=== PATIENT | female | born 1995 | race Caucasian/White ===

== ENCOUNTER 2017-05-27 15:23 | Emergency (ER) | payer BC ==
[2017-05-27 15:31] VITALS: BP 134/89
--- NOTE | 2017-05-27 15:41 | UC ---
Dental HPI - HPI Summary HPI Summary: 3rd molar upper right pain ful has had problems on/off for year but usually goes away quickly this time pain continues has a dental appointment for Monday - History of Current Complaint Chief Complaint: UCDentalProblem Stated Complaint: TOOTH PAIN Time Seen by Provider: 05/27/17 15:33 Hx Obtained From: Patient Hx Last Menstrual Period: 05/10/17 ?: No Onset/Duration: Gradual Onset, Worse Since - past 2 days Severity: Moderate Pain Intensity: 7 Pain Scale Used: 0-10 Numeric Aggravating: Heat, Cold, Chewing Alleviating: Nothing Related History: Previous Dental Care on Same Tooth - Allergies/Home Medications Allergies/Adverse Reactions: Allergies Allergy/AdvReac Type Severity Reaction Status Date / Time Azithromycin [From Zithromax] Allergy Hives Verified 05/27/17 15:27 Penicillins Allergy Hives/Diff. Verified 05/27/17 15:27 Breathing/I tching Home Medications: Home Medications Acetaminophen [Tylenol] 325 mg PO Q6HR PRN 05/27/17 [History Confirmed 05/27/17] PMH/Surg Hx/FS Hx/Imm Hx Previously Healthy: Yes - Surgical History Surgical History: Yes Surgery Procedure, Year, and Place: toncilectomy, [place] hx of - Family History Known Family History: Positive: None - Social History Occupation: Employed Full-time Lives: With Family Alcohol Use: Occasionally Substance Use Type: None Smoking Status (MU): Never Smoked Tobacco Review of Systems Constitutional: Negative Skin: Negative Eyes: Negative ENT: Dental Pain Respiratory: Negative Cardiovascular: Negative Gastrointestinal: Negative Genitourinary: Negative Motor: Negative Neurovascular: Negative Musculoskeletal: Negative Neurological: Negative Psychological: Negative All Other Systems Reviewed And Are Negative: Yes Physical Exam Triage Information Reviewed: Yes Appearance: Well-Appearing, Well-Nourished, Pain Distress - mild Vital Signs: Initial Vital Signs Temp 99.3 F 05/27/17 15:28 Pulse 79 05/27/17 15:28 Resp 14 05/27/17 15:28 BP 134/89 05/27/17 15:28 Pulse Ox 100 05/27/17 15:28 Vital Signs Reviewed: Yes Eye Exam: Normal Eyes: Positive: Conjunctiva Clear ENT Exam: Normal ENT: Positive: Normal ENT inspection, Hearing grossly normal, Pharynx normal. Negative: Nasal congestion, Nasal drainage, Trismus, Muffled/hoarse voice Dental Exam: Normal Dental: Positive: Percussion Tenderness @ - 3rd upper molar on right, Gross Decay/Caries @ Neck exam: Normal Neck: Positive: Supple, Nontender, No Lymphadenopathy Respiratory Exam: Normal Respiratory: Positive: Chest non-tender, No respiratory distress, No accessory muscle use Cardiovascular Exam: Normal Cardiovascular: Positive: RRR, Pulses Normal, Brisk Capillary Refill Musculoskeletal Exam: Normal Musculoskeletal: Positive: Strength Intact, ROM Intact, No Edema Neurological Exam: Normal Neurological: Positive: Alert, Muscle Tone Normal Psychological Exam: Normal Skin Exam: Normal Dental Complaint Course/Dx - Course Course Of Treatment: clinda, ibuprofen hydrocodone, follow with dentist on Monday asplanned - Differential Dx/Diagnosis Differential Diagnosis/Dx: Dental Abscess, Dental Caries, Odontogenic Pain Provider Diagnoses: Dental caries with abscess right upper 3rd molar Discharge - Discharge Plan Condition: Stable Disposition: HOME Prescriptions: Clindamycin Cap(NF) [Cleocin 300 mg Cap(NF)] 300 mg PO Q6H #40 cap HYDROcodone/ACETAMIN 5-325 MG* [Froid 5-325 TAB*] 1 tab PO Q6H PRN #20 tab MDD 4 PRN Reason: Pain HYDROcodone/ACETAMIN 5-325 MG* [Froid 5-325 TAB*] 1 tab PO Q6H PRN #20 tab MDD 4 PRN Reason: pain Ibuprofen TAB* [Motrin TAB* 600 MG] 600 mg PO Q6H PRN #40 tab PRN Reason: pain Patient Education Materials: Dental Abscess (ED), Toothache (ED) Forms: *Work Release Referrals: No Primary Care Phys,NOPCP [Primary Care Provider] - Additional Instructions: Follow with dentist on Monday as planned
== END 2017-05-27 15:51 | disposition home or self-care (01) ==
LOC: UCEAST 15:23
DX: K02.9 Dental caries, unspecified (principal); K04.7 Periapical abscess without sinus
CPT/HCPCS: 99202; G0463

== ENCOUNTER 2017-06-17 12:01 | Emergency (ER) | payer BC ==
--- NOTE | 2017-06-17 12:18 | UC ---
General HPI - HPI Summary HPI Summary: Patient presents with complaints of sore tongue following treatment of clindymycin for dental extractions. She states that the extractions are healing well, denies any fever, chills, bleeding or discharge from the sites. She offers no other concners or complaints at this visit. - History of Current Complaint Chief Complaint: UCGeneralIllness Stated Complaint: SORE MOUTH Time Seen by Provider: 06/17/17 12:12 Hx Obtained From: Patient Hx Last Menstrual Period: 06/02/17 Onset/Duration: Gradual Onset, Lasting Days Timing: Constant Onset Severity: Moderate Associated Signs & Symptoms: Positive: Other - white spots on tongue,coating of tongue. - Allergy/Home Medications Allergies/Adverse Reactions: Allergies Allergy/AdvReac Type Severity Reaction Status Date / Time Azithromycin [From Zithromax] Allergy Hives Verified 05/27/17 15:27 Penicillins Allergy Hives/Diff. Verified 05/27/17 15:27 Breathing/I tching PMH/Surg Hx/FS Hx/Imm Hx Previously Healthy: Yes Respiratory History: Other - dental abscess,caries. - Surgical History Surgical History: Yes Surgery Procedure, Year, and Place: toncilectomy, [place] hx of - Family History Known Family History: Positive: None - Social History Occupation: Employed Part-time Lives: With Family Alcohol Use: Occasionally Substance Use Type: None Smoking Status (MU): Never Smoked Tobacco Review of Systems ENT: Other - white spots and plaque on tongue All Other Systems Reviewed And Are Negative: Yes Physical Exam Triage Information Reviewed: Yes Appearance: Well-Appearing Vital Signs: Initial Vital Signs Temp 97.4 F 06/17/17 12:06 Pulse 78 06/17/17 12:06 Resp 16 06/17/17 12:06 Pulse Ox 100 06/17/17 12:06 Vital Signs Reviewed: Yes Eye Exam: Normal ENT Exam: Normal ENT: Positive: Other: - tingue beefy red, with surrounding white plague and papules. Neck exam: Normal Respiratory Exam: Normal Cardiovascular Exam: Normal Course/Dx - Course Course Of Treatment: Patient presents following full course of clindymycin for dental extractions and abscesses. She has since developed a sensative tongue, and white paplues consisent with thrush. Rx Nystatin. Follow up if symtpoms persist, or worsen. Stable VS at discharge. - Differential Dx - Multi-Symptom Differential Diagnoses: Other - Thrush Provider Diagnoses: Thrush. Oral candidiasis Discharge - Discharge Plan Condition: Stable Disposition: HOME
== END 2017-06-17 12:40 | disposition home or self-care (01) ==
LOC: UCEAST 12:01
DX: B37.0 Candidal stomatitis (principal); Z88.3 Allergy status to other anti-infective agents; Z88.0 Allergy status to penicillin
CPT/HCPCS: 99212; G0463

== ENCOUNTER 2017-08-31 16:56 | Emergency (ER) | payer BC ==
[2017-08-31 17:13] VITALS: BP 131/70
--- NOTE | 2017-08-31 21:22 | UC ---
Melvina Pollard Alfonso, scribed for Danna Lee DO on 08/31/17 at 1840 . Back Pain HPI - HPI Summary HPI Summary: This patient is a 22 year old F presenting to [facility] with a chief complaint of right sided back pain since this morning. The back pain radiates to her groin. She was diagnosed with a UTI two days ago. The patient rates the cramping pain 7 /10 in severity. This morning they were a 9/10. Symptoms aggravated by movement and palpation. Symptoms alleviated by nothing. Patient reports headache , pain with bumps in the roaddysuria, urinary frequency, and foul urinary odor. Patient denies fever, chills, N/V, rashes, sore throat, and SOB. Medications reviewed this visit. - History of Current Complaint Chief Complaint: UCGeneralIllness Stated Complaint: UTI Time Seen by Provider: 08/31/17 18:19 Hx Obtained From: Patient Hx Last Menstrual Period: 08/17/17 Onset/Duration: Sudden Onset, Lasting Hours, Still Present Timing: Constant Severity Currently: Moderate Pain Intensity: 5 Pain Scale Used: 0-10 Numeric Aggravating Factor(s): Movement, Other - palpation Alleviating Factor(s): Nothing Associated Signs And Symptoms: Positive: Other - headache, dysuria, urinary frequency, and foul urinary odor. Patient denies fever, chills, N/V, rashes, sore throat, and SOB. - Allergies/Home Medications Allergies/Adverse Reactions: Allergies Allergy/AdvReac Type Severity Reaction Status Date / Time Azithromycin [From Zithromax] Allergy Hives Verified 08/31/17 19:44 Penicillins Allergy Hives/Diff. Verified 08/31/17 19:44 Breathing/I tching Home Medications: Home Medications Bupropion HCl [Bupropion HCl ER] 100 mg PO BID 08/31/17 [History Confirmed 08/31] PMH/Surg Hx/FS Hx/Imm Hx Previously Healthy: No Respiratory History: Asthma Psychological History: Depression - Surgical History Surgical History: Yes Surgery Procedure, Year, and Place: toncilectomy, [place] hx of - Family History Known Family History: Positive: Cardiac Disease, Diabetes - Social History Alcohol Use: None Substance Use Type: None Smoking Status (MU): Never Smoked Tobacco - Immunization History Most Recent Influenza Vaccination: none Review of Systems Genitourinary: Dysuria, Frequency, Other - foul urinary odor Musculoskeletal: Other: - right sided back pain Neurological: Headache All Other Systems Reviewed And Are Negative: Yes Physical Exam Triage Information Reviewed: Yes Appearance: Well-Appearing, No Pain Distress, Obese Vital Signs: Initial Vital Signs Temp 98.4 F 08/31/17 17:07 Pulse 84 08/31/17 17:07 Resp 18 08/31/17 17:07 BP 131/70 08/31/17 17:07 Pulse Ox 100 08/31/17 17:07 Vital Signs Reviewed: Yes Eyes: Positive: Conjunctiva Clear. Negative: Discharge ENT: Positive: Hearing grossly normal, Pharynx normal. Negative: Tonsillar swelling, Tonsillar exudate, Trismus, Muffled/hoarse voice Neck: Positive: Supple, Nontender Respiratory: Positive: Chest non-tender, Lungs clear, Normal breath sounds, No respiratory distress Cardiovascular: Positive: RRR, No Murmur Abdomen Description: Positive: Soft, Guarding, McBurney's Point Tenderness, Other: - Positive bilateral CVA tenderness worse on the right. RLQ tenderness.. Negative: Distended Bowel Sounds: Positive: Present Musculoskeletal Exam: Normal Neurological Exam: Normal Neurological: Positive: Alert, Muscle Tone Normal Psychological Exam: Normal Psychological: Positive: Age Appropriate Behavior Skin Exam: Normal Skin: Positive: Other - Warm, Dry, Normal color Back Pain Course/Dx - Course Course Of Treatment: This patient is a 22 year old F presenting to [facility] with a chief complaint of right sided back pain since this morning. The back pain radiates to her groin. She was diagnosed with a UTI two days ago. The patient rates the cramping pain 5/10 in severity. Symptoms aggravated by movement and palpation. Symptoms alleviated by nothing. Patient reports headache, dysuria, urinary frequency, and foul urinary odor. Patient denies fever, chills, N/V, rashes, sore throat, and SOB. Medications reviewed this visit. Patient will go immediately to the ED by private car. The patient is agreeable with this plan. - Differential Dx/Diagnosis Differential Diagnosis/HQI/PQRI: Renal Colic, Other - appy, infected kidney stone Provider Diagnoses: rlq pain Discharge - Discharge Plan Condition: Stable Disposition: HOME Patient Education Materials: Abdominal Pain (ED) Forms: *Work Release Referrals: [facility] [place] PH[facility]IAN REFERRAL [Outside] Additional Instructions: YOUR BLOOD PRESSURE WAS ELEVATED AT THIS VISIT. FOLLOW UP WITH YOUR PRIMARY CARE PROVIDER WITHIN ONE WEEK FOR THIS. YOUR HISTORY AND PHYSICAL EXAM MAKES US SUSPICIOUS OF THE POSSIBILITY OF AN INFECTED KIDNEY STONE. WE COULD NOT COMPLETE THAT EVALUATION HERE BECAUSE THE SEVERE RLQ ABDOMINAL PAIN YOUR ARE HAVING RAISES CONCERN FOR APPENDICITIS. WE CANNOT EVALUATE YOU HERE FOR THAT. YOU SHOULD GO TO THE EMERGENCY DEPARTMENT IMMEDIATELY FOR FURTHER EVALUATION AND TREATMENT. THIS RISKS ASSOCIATED WITH AN INFECT KIDNEY STONE ARE WORSENING PAIN, WORSENING INFECTION, SEPSIS, KIDNEY DAMAGE, AND . THE RISK ASSOCIATED WITH APPENDICITIS ARE WORSENING PAIN, RUPTURE, WORSENING INFECTION, AND . DO NOT EAT ANYTHING UNTIL EVALUATED AND MEDICALLY CLEARED. The documentation as recorded by the Melvina hansen Alfonso accurately reflects the service I personally performed and the decisions made by , Danna Lee DO.
== END 2017-08-31 19:10 | disposition home or self-care (01) ==
LOC: UCEAST 16:56
DX: R10.31 Right lower quadrant pain (principal); Z88.3 Allergy status to other anti-infective agents; Z88.0 Allergy status to penicillin; J45.909 Unspecified asthma, uncomplicated; F32.9 Major depressive disorder, single episode, unspecified; E66.9 Obesity, unspecified; Z32.02 Encounter for pregnancy test, result negative
CPT/HCPCS: 81003; 84702; 87086; 99212; G0463

== ENCOUNTER 2017-08-31 19:36 | Emergency (ER) | payer BC ==
[2017-08-31 21:37] LABS: Hematocrit 42 % (35-47); Hemoglobin 14.3 g/dl (12.0-16.0); Mean Corpuscular HGB Conc 34 g/dl (31-36); Mean Corpuscular Hemoglobin 29 pg (27-31); Mean Corpuscular Volume 86 fL (80-97); Mean Platelet Volume 9 um3 (7.4-10.4); Red Blood Count 4.89 10^6/ul (4.0-5.4); Red Cell Distribution Width 13 % (10.5-15); White Blood Count 7.7 10^3/ul (3.5-10.8)
[2017-08-31 21:54] LABS: ALT 16 U/L (7-52); AST 16 U/L (13-39); Albumin 4.4 g/dL (3.2-5.2); Alkaline Phosphatase 112 U/L (34-104); Anion Gap 6 mmol/L (2-11); BUN/Creatinine Ratio 14.1 (8-20); Blood Urea Nitrogen 11 mg/dL (6-24); C Reactive Protein 5.14 mg/L (< 5.00); CO2 Carbon Dioxide 25 mmol/L (22-32); Calcium 9.4 mg/dL (8.6-10.3); Chloride 106 mmol/L (101-111); EGFR African American 121.1 (>60); EGFR Non-African American 94.2 (>60); Globulin 2.6 g/dL (2-4); Glucose 79 mg/dL (70-100); Lipase 22 U/L (11.0-82.0); Potassium 3.9 mmol/L (3.5-5.0); Sodium 137 mmol/L (133-145)
[2017-08-31 22:45] LABS: Urine Bacteria 1+ (Absent); Urine Bilirubin Negative (Negative); Urine Glucose Negative (Negative); Urine Nitrite Negative (Negative)
[2017-08-31] MEDS ORDERED: Morphine INJ* 4 MG/ML 1 ML CARPUJECT IV ONE (23:38)
[2017-08-31] MEDS ORDERED: NS 0.9% 1000 ML* 1,000 ML IV ONE (23:38)
[2017-08-31] MEDS ORDERED: Ondansetron INJ* 2 MG/ML VIAL IV ONE (23:38)
[2017-09-01] MEDS ORDERED: Iohexol 300* (CONTRAST) 10 ML SDV IV ONE (02:18)
[2017-09-01] MEDS ORDERED: Levofloxacin TAB* 500 MG PO ONE (03:42)
[2017-09-01 04:44] VITALS: BP 115/62
--- NOTE | 2017-09-01 05:33 | ED ---
Simón Pollard Thomas, scribed for Ming Canales on 09/01/17 at 0214 . Abdominal Pain/Female - HPI Summary HPI Summary: The pt is a 22 y/o F referred from A and c/o L flank pain that began two days ago. The pain radiates to her left abdomen. The pain is rated 7/10. The pain is aggravated by palpation and is alleviated by nothing. 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 Pt additionally c/o constipation. Pt denies N/V/D. She has a UTI revealed on UTI and is on antibiotics. The patient is accompanied by a female. 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 Negative: Nausea, Vomiting, Diarrhea Allergies/Adverse Reactions: Allergies Allergy/AdvReac Type Severity Reaction Status Date / Time Azithromycin [From Zithromax] Allergy Hives Verified 08/31/17 19:44 Penicillins Allergy Hives/Diff. Verified 08/31/17 19:44 Breathing/I tching PMH/Surg Hx/FS Hx/Imm Hx Previously Healthy: No Endocrine/Hematology History: Denies: Hx Diabetes, Hx Thyroid Disease Cardiovascular History: Denies: Hx Hypertension Respiratory History: Reports: Hx Asthma Denies: Hx Chronic Obstructive Pulmonary Disease (COPD) GI History: Denies: Hx Ulcer - Surgical History Surgery Procedure, Year, and Place: toncilectomy, [place] hx of Infectious Disease History: No Infectious Disease History: Denies: Hx Clostridium Difficile, Hx Hepatitis, Hx Human Immunodeficiency Virus (HIV), Hx of Known/Suspected MRSA, Hx Shingles, Hx Tuberculosis, Hx Known/ Suspected VRE, Hx Known/Suspected VRSA, History Other Infectious Disease, Traveled Outside the [place] in Last 30 Days - Family History Known Family History: Positive: Other - When asked FHx, she responds "negative" - Social History Alcohol Use: Rare Hx Substance Use: No Substance Use Type: Reports: None Hx Tobacco Use: No Smoking Status (MU): Never Smoked Tobacco Review of Systems Positive: Other - Constipation. Negative: Vomiting, Diarrhea, Nausea Positive: flank pain - L flank pain that radiates to L-sided abd All Other Systems Reviewed And Are Negative: Yes Physical Exam - Summary Physical Exam Summary: Appearance: Well appearing, no pain distress. Skin: Warm, dry, reflects adequate perfusion. Head/face: Normal. Eyes: EOMI, MARLENA. ENT: Normal. Neck: Supple, nontender. Respiratory: CTA, breath sounds present. Cardiovascular: RRR, pulses symmetrical. Abdomen: Soft. She has RLQ tenderness. Bowel: Present. Musculoskeletal: Normal, strength/ROM intact. Neuro: Normal, sensory motor intact, A&Ox3. Triage Information Reviewed: Yes Vital Signs On Initial Exam: Initial Vitals Temp Pulse Resp BP Pulse Ox 99.1 F 84 14 134/76 99 08/31/17 19:41 08/31/17 19:41 08/31/17 19:41 08/31/17 19:41 08/31/17 19:41 Vital Signs Reviewed: Yes Diagnostics - Vital Signs Vital Signs Temp Pulse Resp BP Pulse Ox 09/01/17 00:42 16 09/01/17 00:30 79 103/85 100 09/01/17 00:07 77 110/69 100 09/01/17 00:01 80 85/57 100 09/01/17 00:00 82 98 08/31/17 23:30 74 109/60 98 08/31/17 23:16 84 99 08/31/17 23:15 125/74 08/31/17 22:22 98.5 F 87 14 137/81 100 08/31/17 21:26 98.6 F 76 16 122/88 100 08/31/17 19:41 99.1 F 84 14 134/76 99 - Laboratory Lab Results: Lab Results 08/31/17 08/31/17 08/31/17 Range/Units 21:20 21:20 22:27 WBC 7.7 (3.5-10.8) 10^3/ul RBC 4.89 (4.0-5.4) 10^6/ul Hgb 14.3 (12.0-16.0) g/dl Hct 42 (35-47) % MCV 86 (80-97) fL MCH 29 (27-31) pg MCHC 34 (31-36) g/dl RDW 13 (10.5-15) % Plt Count 199 (150-450) 10^3/ul MPV 9 (7.4-10.4) um3 Neut % (Auto) 56.1 (38-83) % Lymph % (Auto) 33.6 (25-47) % Stephenson % (Auto) 7.5 (1-9) % Eos % (Auto) 2.2 (0-6) % Baso % (Auto) 0.6 (0-2) % Absolute Neuts (auto) 4.4 (1.5-7.7) 10^3/ul Absolute Lymphs (auto) 2.6 (1.0-4.8) 10^3/ul Absolute Monos (auto) 0.6 (0-0.8) 10^3/ul Absolute Eos (auto) 0.2 (0-0.6) 10^3/ul Absolute Basos (auto) 0 (0-0.2) 10^3/ul Absolute Nucleated RBC 0.01 10^3/ul Nucleated RBC % 0.1 Sodium 137 (133-145) mmol/L Potassium 3.9 (3.5-5.0) mmol/L Chloride 106 (101-111) mmol/L Carbon Dioxide 25 (22-32) mmol/L Anion Gap 6 (2-11) mmol/L BUN 11 (6-24) mg/dL Creatinine 0.78 (0.51-0.95) mg/dL Est GFR ( Amer) 121.1 (>60) Est GFR (Non-Af Amer) 94.2 (>60) BUN/Creatinine Ratio 14.1 (8-20) Glucose 79 (70-100) mg/dL Calcium 9.4 (8.6-10.3) mg/dL Total Bilirubin 0.60 (0.2-1.0) mg/dL AST 16 (13-39) U/L ALT 16 (7-52) U/L Alkaline Phosphatase 112 H (34-104) U/L C-Reactive Protein 5.14 H (< 5.00) mg/L Total Protein 7.0 (6.4-8.9) g/dL Albumin 4.4 (3.2-5.2) g/dL Globulin 2.6 (2-4) g/dL Albumin/Globulin Ratio 1.7 (1-3) Lipase 22 (11.0-82.0) U/L Beta HCG, Quant < 0.60 mIU/mL Urine Color Yellow Urine Appearance Cloudy Urine pH 7.0 (5-9) Ur Specific [place] 1.013 (1.010-1.030) Urine Protein Negative (Negative) Urine Ketones Negative (Negative) Urine Blood Negative (Negative) Urine Nitrate Negative (Negative) Urine Bilirubin Negative (Negative) Urine Urobilinogen Negative (Negative) Ur Leukocyte Esterase 3+ H (Negative) Urine WBC (Auto) 2+(11-20/hpf) H (Absent) Urine RBC (Auto) Trace(0-2/hpf) (Absent) Ur Squamous Epith Cells Present H (Absent) Urine Bacteria 1+ H (Absent) Urine Glucose Negative (Negative) Result Diagrams: 08/31/17 21:20 08/31/17 21:20 Lab Statement: Any lab studies that have been ordered have been reviewed, and results considered in the medical decision making process. - CT CT Abd/Pel CT Interpretation: Positive (See Comments) CT Interpretation Completed By: Radiologist Abdominal Pain Fem Course/Dx - Course Course Of Treatment: Patient presents with L flank pain onset two days ago. Bloodwork was obtained. CT Abd/Pel is negative for disease. Patient is discharged home with diagnosis of UTI and prescription for Levaquin. Instructed to follow up with primary care in 3 days. - Diagnoses Provider Diagnoses: UTI (urinary tract infection) Discharge - Discharge Plan Condition: Stable Disposition: HOME Prescriptions: Ibuprofen TAB* [Motrin TAB* 600 MG] 600 mg PO Q8H PRN #20 tab MDD 3 PRN Reason: Pain Levofloxacin TAB* [Levaquin 500 Tab*] 500 mg PO DAILY #6 tab Patient Education Materials: Urinary Tract Infection in Women (ED) Referrals: [facility] [place] [Outside] - 3 Days Additional Instructions: Follow up with your primary care provider in three days. You can use the [facility] [place] service to find one if needed. Return to the emergency room for any new or worsening symptoms. The documentation as recorded by the Simón hansen Thomas accurately reflects the service I personally performed and the decisions made by me, Ming Canales.
--- NOTE | 2017-09-01 08:40 | RAD ---
INDICATION: Right lower quadrant pain. Appendicitis. COMPARISON: None TECHNIQUE: Axial source images were obtained from the hemidiaphragms to the symphysis pubis following administration of oral and intravenous contrast. 100 mL Omnipaque 300 was utilized. Coronal and sagittal reconstructed images were acquired. Lung bases: The lung bases are clear. Liver: The liver is normal in size. There are no masses. There is no ductal dilatation. Gallbladder: There are no calcified gallstones. There is no evidence of wall thickening or pericholecystic fluid. Spleen: The spleen is normal in size. There are no masses. Pancreas: There is no focal pancreatic mass or ductal dilatation. Adrenal glands: There is no evidence of adrenal mass. Kidneys: The kidneys are normal in size and position. There are prompt nephrograms and there is prompt excretion bilaterally. There are no renal parenchymal masses. There is no evidence of nephrolithiasis. Adenopathy: There is no evidence of adenopathy by size criteria. Fluid collections: There is a small amount of free fluid in the dependent portion of the pelvis extending into the adnexal regions. Vessels:There are no significant atherosclerotic changes involving the aorta. There is no focal aneurysm. The iliac vessels are normal in caliber. The IVC appears normal. GI tract: There are no acute CT bowel findings. There is no obstruction. The stomach and small bowel appear normal. The lower GI tract is normal. The cecum, ileocecal valve, and terminal ileum appear normal. The appendix is visualized and appear normal. Pelvic organs: The uterus and left ovary unremarkable. There is a 2.2 cm involuting right ovarian cyst. Bladder: There are no bladder masses. Abdominal and pelvic soft tissues: The extraperitoneal abdominal and pelvic soft tissues appear normal.. Osseous structures: There are no acute osseous findings. Other: None IMPRESSION: INVOLUTING RIGHT OVARIAN CYST WITH FREE FLUID. NORMAL APPENDIX. NO OTHER SPECIFIC CT FINDINGS.
== END 2017-09-01 04:40 | disposition home or self-care (01) ==
LOC: ED 19:36
DX: N39.0 Urinary tract infection, site not specified (principal); N83.201 Unspecified ovarian cyst, right side; R10.84 Generalized abdominal pain; K59.00 Constipation, unspecified
CPT/HCPCS: 36415; 74177; 80053; 81003; 81015; 83690; 84702; 85025; 86140; 96374; 96375; 99284; J2270; J2405; Q9967

== ENCOUNTER 2018-12-15 21:28 | Emergency (ER) | payer BC ==
[2018-12-15 21:38] VITALS: BP 140/87
--- NOTE | 2018-12-15 21:55 | UC ---
Abdominal Pain Female HPI - HPI Summary HPI Summary: 23-year-old woman comes in to clinic with a chief complaint of right lower quadrant abdominal pain. She's had diarrhea for a week and a half. The last couple days she's been getting blood in the her stool. Pain in the right lower quadrant is a 6 out of 10 it's worse with walking and bending her right leg. No prior surgeries in her abdomen. She has had some night sweats. Her appetite is variable. Her stool sometimes are hard and sometimes they are liquid diarrhea of blood. - History of Current Complaint Chief Complaint: UCAbdominalPain Stated Complaint: ABDOMINAL PAIN, AND BLOODY STOOL Time Seen by Provider: 12/15/18 21:49 Hx Last Menstrual Period: 11/14/18 Pain Intensity: 6 Allergies/Adverse Reactions: Allergies Allergy/AdvReac Type Severity Reaction Status Date / Time azithromycin [From Zithromax] Allergy Intermediate Hives Verified 12/15/18 21:38 Penicillins Allergy Intermediate Hives Verified 12/15/18 21:38 Home Medications: Home Medications NK [No Home Medications Reported] 12/15/18 [History Confirmed 12/15/18] PMH/Surg Hx/FS Hx/Imm Hx Previously Healthy: Yes - Surgical History Surgical History: Yes Surgery Procedure, Year, and Place: toncilectomy, [place] hx of - Family History Known Family History: Positive: None, Other - When asked FHx, she responds "negative" - Social History Alcohol Use: Occasionally Substance Use Type: None Smoking Status (MU): Never Smoked Tobacco - Immunization History Most Recent Influenza Vaccination: none Review of Systems All Other Systems Reviewed And Are Negative: Yes Constitutional: Positive: Other - night sweats Skin: Positive: Negative Eyes: Positive: Negative ENT: Positive: Negative Respiratory: Positive: Negative Cardiovascular: Positive: Negative Gastrointestinal: Positive: Abdominal Pain, Diarrhea Motor: Positive: Negative Neurovascular: Positive: Negative Musculoskeletal: Positive: Negative Neurological: Positive: Negative Psychological: Positive: Negative Is Patient Immunocompromised?: No Physical Exam Triage Information Reviewed: Yes Appearance: No Pain Distress, Well-Nourished, Ill-Appearing - mild Vital Signs: Initial Vital Signs Temp 99.5 F 12/15/18 21:33 Pulse 109 12/15/18 21:33 Resp 18 12/15/18 21:33 BP 140/87 12/15/18 21:33 Pulse Ox 100 12/15/18 21:33 Vital Signs Reviewed: Yes Eye Exam: Normal Eyes: Positive: Conjunctiva Clear Neck exam: Normal Neck: Positive: Supple Respiratory: Positive: Lungs clear, Normal breath sounds, No respiratory distress Cardiovascular: Positive: RRR Abdomen Description: Positive: Other: - TENDER TO PALPATION RLQ. POSITIVE HEEL STRIKE AND OBTURATOR SIGN Musculoskeletal Exam: Normal Musculoskeletal: Positive: Strength Intact Neurological Exam: Normal Neurological: Positive: Alert, Muscle Tone Normal Psychological Exam: Normal Psychological: Positive: Age Appropriate Behavior Skin Exam: Normal Abd Pain Female Course/Dx - Course Course Of Treatment: Due to the right lower quadrant abdominal pain and the bloody diarrhea I recommended further evaluation in the emergency department. Patient preferred to go by POV. - Differential Dx/Diagnosis Provider Diagnosis: Abdominal pain, GI bleed Discharge - Sign-Out/Discharge Documenting (check all that apply): Patient Departure All imaging exams completed and their final reports reviewed: No Studies - Discharge Plan Condition: Stable Disposition: HOME-RECOMMEND TO ED Patient Education Materials: Gastrointestinal Bleeding (ED), Acute Abdominal Pain (ED) Referrals: Kushal OLMEDO,Audra Aranda [Primary Care Provider] - Additional Instructions: GO DIRECTLY TO THE EMERGENCY DEPARTMENT FOR FURTHER EVALUATION. - Billing Disposition and Condition Condition: STABLE Disposition: Home-Recommend to ED
== END 2018-12-15 22:00 | disposition home health service (06) ==
LOC: UCEAST 21:28
DX: R10.31 Right lower quadrant pain (principal); K92.2 Gastrointestinal hemorrhage, unspecified; Z88.0 Allergy status to penicillin; Z88.1 Allergy status to other antibiotic agents
CPT/HCPCS: 99212; G0463

== ENCOUNTER 2019-10-21 16:56 | Emergency (ER) | payer BC ==
[2019-10-21 19:07] LABS: ABS Eosinophils 0.2 10^3/ul (0-0.6); ABS Lymphocytes 1.9 10^3/ul (1.0-4.8); ABS Monocytes 0.4 10^3/ul (0-0.8); Eosinophil % 4.1 %; Hematocrit 39 % (35-47); Hemoglobin 13.4 g/dL (12.0-16.0); Lymphocyte % 41.4 %; Mean Corpuscular HGB Conc 35 g/dL (31-36); Mean Corpuscular Hemoglobin 30 pg (27-31); Mean Corpuscular Volume 86 fL (80-97); Mean Platelet Volume 8.6 fL (7.4-10.4); Nucleated Red Blood Cells % 0.1; Platelet Count 197 10^3/uL (150-450); Red Blood Count 4.55 10^6 /uL (3.70-4.87); Red Cell Distribution Width 13 % (10-15); White Blood Count 4.5 10^3/uL (3.5-10.8)
[2019-10-21 19:25] LABS: Albumin 3.8 g/dL (3.2-5.2); Albumin/Globulin Ratio 1.5 (1-3); BUN/Creatinine Ratio 11.7 (8-20); C Reactive Protein 30.07 mg/L (<8.01); Calcium 8.6 mg/dL (8.6-10.3); EGFR African American 113.4 (>60); EGFR Non-African American 93.7 (>60); Globulin 2.6 g/dL (2-4); Potassium 3.6 mmol/L (3.5-5.0); Total Bilirubin 0.7 mg/dL (0.2-1.0); Total Protein 6.4 g/dL (6.4-8.9)
[2019-10-21] MEDS ORDERED: Ketorolac INJ* 30 MG/ML 1 ML VIAL IV PUSH ONE (20:39)
[2019-10-21] MEDS ORDERED: NS 0.9% 1000 ML** 1,000 ML IV ONE (20:39)
--- NOTE | 2019-10-21 20:41 | ED ---
GI/ HPI - HPI Summary HPI Summary: 24 year old female presents with abd pain and vomiting for the past 4 days. pain is greatest in the right upper quadrant. Hurts most when she eats. She denies any urinary symptoms. She admits to nausea vomiting diarrhea. Has no medical conditions. States that she's had some green stool. No blood in her stool. - History of Current Complaint Chief Complaint: EDAbdPain Time Seen by Provider: 10/21/19 20:34 Stated Complaint: SEVERE ABDOMINAL PAIN PER PT Hx Last Menstrual Period: 11/14/18 Pain Intensity: 7 - Allergy/Home Medications Allergies/Adverse Reactions: Allergies Allergy/AdvReac Type Severity Reaction Status Date / Time azithromycin [From Zithromax] Allergy Intermediate Hives Verified 10/21/19 16:59 Penicillins Allergy Intermediate Hives Verified 10/21/19 16:59 PMH/Surg Hx/FS Hx/Imm Hx Endocrine/Hematology History: Denies: Hx Diabetes, Hx Thyroid Disease Cardiovascular History: Denies: Hx Hypertension Respiratory History: Reports: Hx Asthma Denies: Hx Chronic Obstructive Pulmonary Disease (COPD) GI History: Denies: Hx Ulcer History: Denies: Hx Dialysis, Hx Renal Disease Musculoskeletal History: Denies: Hx Gout Sensory History: 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, Hx Legally Blind Opthamlomology History: 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, Hx Legally Blind Neurological History: Reports: Hx Dementia Psychiatric History: Reports: Hx Autism - Surgical History Surgery Procedure, Year, and Place: toncilectomy, [place] hx of Infectious Disease History: No Infectious Disease History: Denies: Hx Clostridium Difficile, Hx Hepatitis, Hx Human Immunodeficiency Virus (HIV), Hx of Known/Suspected MRSA, Hx Shingles, Hx Tuberculosis, Hx Known/ Suspected VRE, Hx Known/Suspected VRSA, History Other Infectious Disease, Traveled Outside the [place] in Last 30 Days - Family History Known Family History: Positive: None, Other - When asked FHx, she responds "negative" - Social History Alcohol Use: Occasionally Hx Substance Use: No Substance Use Type: Reports: None Hx Tobacco Use: No Smoking Status (MU): Never Smoked Tobacco Review of Systems Negative: Fever Negative: Chest Pain Negative: Shortness Of Breath Positive: Abdominal Pain, Vomiting, Diarrhea, Nausea All Other Systems Reviewed And Are Negative: Yes Physical Exam Triage Information Reviewed: Yes Vital Signs On Initial Exam: Initial Vitals Temp Pulse Resp BP Pulse Ox 96.6 F 87 19 145/92 99 10/21/19 16:57 10/21/19 16:57 10/21/19 16:57 10/21/19 16:57 10/21/19 16:57 Vital Signs Reviewed: Yes Appearance: Positive: Well-Appearing Skin: Positive: Warm, Dry Head/Face: Positive: Normal Head/Face Inspection Eyes: Positive: Normal, Conjunctiva Clear ENT: Positive: Pharynx normal Respiratory/Lung Sounds: Positive: Clear to Auscultation, Breath Sounds Present Cardiovascular: Positive: Normal, RRR Abdomen Description: Positive: Soft, Other: - tenderness right side abd Bowel Sounds: Positive: Present Musculoskeletal: Positive: Normal Neurological: Positive: Normal Psychiatric: Positive: Normal Procedures - Sedation Patient Received Moderate/Deep Sedation with Procedure: No Diagnostics - Vital Signs Vital Signs Temp Pulse Resp BP Pulse Ox 10/21/19 18:43 98.2 F 81 18 121/69 100 10/21/19 16:57 96.6 F 87 19 145/92 99 - Laboratory Lab Results: Lab Results 10/21/19 10/21/19 10/21/19 Range/Units 18:57 18:59 18:59 WBC 4.5 (3.5-10.8) 10^3/uL RBC 4.55 (3.70-4.87) 10^6 /uL Hgb 13.4 (12.0-16.0) g/dL Hct 39 (35-47) % MCV 86 (80-97) fL MCH 30 (27-31) pg MCHC 35 (31-36) g/dL RDW 13 (10-15) % Plt Count 197 (150-450) 10^3/uL MPV 8.6 (7.4-10.4) fL Neut % (Auto) 45.2 % Lymph % (Auto) 41.4 % Rhea % (Auto) 8.9 % Eos % (Auto) 4.1 % Baso % (Auto) 0.4 % Absolute Neuts (auto) 2.0 (1.5-7.7) 10^3/ul Absolute Lymphs (auto) 1.9 (1.0-4.8) 10^3/ul Absolute Monos (auto) 0.4 (0-0.8) 10^3/ul Absolute Eos (auto) 0.2 (0-0.6) 10^3/ul Absolute Basos (auto) 0.0 (0-0.2) 10^3/ul Absolute Nucleated RBC 0.0 10^3/ul Nucleated RBC % 0.1 Sodium 136 (135-145) mmol/L Potassium 3.6 (3.5-5.0) mmol/L Chloride 105 (101-111) mmol/L Carbon Dioxide 26 (22-32) mmol/L Anion Gap 5 (2-11) mmol/L BUN 9 (6-24) mg/dL Creatinine 0.77 (0.51-0.95) mg/dL Est GFR ( Amer) 113.4 (>60) Est GFR (Non-Af Amer) 93.7 (>60) BUN/Creatinine Ratio 11.7 (8-20) Glucose 103 H (70-100) mg/dL Lactic Acid 0.9 (0.5-2.0) mmol/L Calcium 8.6 (8.6-10.3) mg/dL Total Bilirubin 0.70 (0.2-1.0) mg/dL AST 16 (13-39) U/L ALT 12 (7-52) U/L Alkaline Phosphatase 110 H (34-104) U/L C-Reactive Protein 30.07 H (<8.01) mg/L Total Protein 6.4 (6.4-8.9) g/dL Albumin 3.8 (3.2-5.2) g/dL Globulin 2.6 (2-4) g/dL Albumin/Globulin Ratio 1.5 (1-3) Lipase 27 (11.0-82.0) U/L Result Diagrams: 10/21/19 18:59 10/21/19 18:57 Lab Statement: Any lab studies that have been ordered have been reviewed, and results considered in the medical decision making process. - CT abd CT Interpretation Completed By: Radiologist Summary of CT Findings: IMPRESSION: No CT findings to correlate with patient's symptomatology. Specifically no appendicitis. - Ultrasound No standard instances Ultrasound Interpretation Completed By: Radiologist Summary of Ultrasound Findings: IMPRESSION: No evidence of gallstones or other acute process. Mild fatty liver. GIGU Course/Dx - Course Course Of Treatment: 24 year old female presents with abd pain and vomiting for the past 4 days. pain is greatest in the right upper quadrant. Hurts most when she eats. She denies any urinary symptoms. She admits to nausea vomiting diarrhea. Has no medical conditions. States that she's had some green stool. No blood in her stool. On exam tenderness in right upper quadrant and right lower quadrant. Ultrasound shows acute findings. CRP elevated. With tenderness in RLQ will get CT. CT shows no acute findings. Patient feeling better with Toradol. We'll discharge with Zofran. Patient understands and agrees with plan. - Diagnoses Differential Diagnoses - Female: Appendicitis, Gastroenteritis (Viral), Urinary Tract Infection Provider Diagnoses: Abdominal pain, Nausea vomiting and diarrhea Discharge ED - Sign-Out/Discharge Documenting (check all that apply): Patient Departure - Discharge Plan Condition: Good Disposition: HOME Prescriptions: Ondansetron ODT TAB* [Zofran 4 MG Odt TAB*] 4 - 8 mg PO Q6H PRN #20 tab.odt PRN Reason: Nausea Patient Education Materials: Acute Abdominal Pain (ED) Referrals: Audra Fatima PA [Primary Care Provider] - Additional Instructions: Can take Zofran every 6 hours as needed for nausea Drink small amounts of fluid as tolerated When able to eat follow BRAT diet: Bananas, rice, applesauce, toast Take ibuprofen or Tylenol for pain as needed every 6 hours Follow up with primary within 5 days Return to ED if develop any new or worsening symptoms - Billing Disposition and Condition Condition: GOOD Disposition: Home
[2019-10-21] MEDS ORDERED: Iohexol 300* (CONTRAST) 10 ML SDV IV ONE (20:45)
[2019-10-21] MEDS ORDERED: Ondansetron INJ* 2 MG/ML VIAL IV ONE (22:42)
[2019-10-21] MEDS ORDERED: O ndansetron ODT 4MG 5TAB PRPK 4 MG PAK PO ONE (22:54)
[2019-10-21 23:45] VITALS: BP 127/84
== END 2019-10-21 23:45 | disposition home or self-care (01) ==
LOC: ED 16:56
DX: R10.9 Unspecified abdominal pain (principal); R11.2 Nausea with vomiting, unspecified; R19.7 Diarrhea, unspecified; K76.0 Fatty (change of) liver, not elsewhere classified; J45.909 Unspecified asthma, uncomplicated; F03.90 Unspecified dementia, unspecified severity, without behavioral disturbance, psychotic disturbance, mood disturbance, and anxiety; F84.0 Autistic disorder; Z88.1 Allergy status to other antibiotic agents; Z88.0 Allergy status to penicillin
CPT/HCPCS: 36415; 74177; 76705; 80053; 83605; 83690; 85025; 86140; 96361; 96374; 99283; A9270-GY; J1885; Q9967